=== PATIENT | female | born 1990 | race Caucasian/White ===

== ENCOUNTER 2016-11-30 22:17 | Emergency (ER) | payer MEDICAID ==
[~2016-11-30] VITALS: Ht 152.4 cm; Wt 63.5 kg
[2016-11-30 22:20] VITALS: BP 123/68; PULSE 78; RESP 18; TEMP 98.4; O2SAT 100
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
--- NOTE | 2016-11-30 22:42 | NUR ---
DR. LINARES AT BEDSIDE EXAMINING THE PT.
[2016-11-30] MEDS ORDERED: KETOROLAC TROMETHAMINE 60 MG/2 ML VIAL IM ONE (22:45)
[2016-11-30] MEDS ORDERED: DEXAMETHASONE SOD PHOSPHATE 10 MG/ML VIAL IM ONE (22:45)
[2016-11-30 23:15] VITALS: BP 128/68; PULSE 71; RESP 18; TEMP 98.4; O2SAT 100
--- NOTE | 2016-11-30 23:15 | NUR ---
Patient given written and verbal discharge instructions and verbalizes understanding. ER MD LINARES discussed with patient the results and treatment provided. Patient in stable condition. ID arm band removed. Rx of IBUFROFEN, AMOXICILLIN given. Patient educated on pain management and to follow up with PMD. Pain Scale 0/10 Opportunity for questions provided and answered.
== END 2016-11-30 23:15 | disposition home or self-care (01) ==
LOC: SED 22:17
DX: J03.90 Acute tonsillitis, unspecified (principal); R03.0 Elevated blood-pressure reading, without diagnosis of hypertension; R22.1 Localized swelling, mass and lump, neck
CPT/HCPCS: 96372; 99284; J1100; J1885

== ENCOUNTER 2018-02-07 03:27 | Emergency (ER) | payer MEDICAID ==
[~2018-02-07] VITALS: Ht 154.9 cm; Wt 54.4 kg
[2018-02-07 03:40] VITALS: BP_SYST 148
[2018-02-07] MEDS ORDERED: KETOROLAC TROMETHAMINE 30 MG VIAL IVP ONE (04:00)
[2018-02-07] MEDS ORDERED: NACL 0.9% 1,000 ML IV ONE (04:00)
[2018-02-07] MEDS ORDERED: ONDANSETRON HCL 4 MG/2 ML VIAL IVP ONE (04:00)
[2018-02-07 04:33] LABS: HEMATOCRIT 39.5 % (36-48); HEMOGLOBIN 13.3 g/dL (12.0-16.0); MEAN CORPUSCULAR HEMOGLOBIN 31 pg (27-31); MEAN CORPUSCULAR HGB CONC 34 % (32-36); MEAN CORPUSCULAR VOLUME 91 fL (79.0-98.0); RED BLOOD CELL COUNT(AUTO) 4.34 MIL/uL (4.2-6.2); WHITE BLOOD COUNT (AUTO) 8.6 K/uL (4.8-10.8)
[2018-02-07 04:34] LABS: BASOPHILS % (AUTO) 0.3 % (0.0-2.0); EOSINOPHILS # (AUTO) 0.2 K/uL (0.0-0.4); LYMPHOCYTES % (AUTO) 11.8 % (20.5-51.5); MONOCYTES # (AUTO) 0.6 K/uL (0.0-1.0); NEUTROPHILS # (AUTO) 6.8 K/uL (1.8-7.7); NEUTROPHILS % (AUTO) 78.9 % (40.0-70.0); PLATELET COUNT (AUTO) 200 K/uL (130-430); RED CELL DISTRIBUTION WIDTH 12.2 % (9.0-15.0)
[2018-02-07 04:36] LABS: CALCIUM 9.2 mg/dL (8.4-11.0); CREATININE 0.51 mg/dL (0.55-1.30); POTASSIUM 3.5 mmol/L (3.5-5.1)
[2018-02-07 04:41] LABS: ALBUMIN 3.6 g/dL (3.4-4.8); TOTAL BILIRUBIN 0.7 mg/dL (0.0-1.0)
[2018-02-07 05:20] VITALS: BP_SYST 124
== END 2018-02-07 05:20 | disposition home or self-care (01) ==
LOC: SED 03:27
DX: A08.4 Viral intestinal infection, unspecified (principal); R74.0 Nonspecific elevation of levels of transaminase and lactic acid dehydrogenase [LDH]; R03.0 Elevated blood-pressure reading, without diagnosis of hypertension
CPT/HCPCS: 36415; 80053; 81025; 85025; 96361; 96374; 96375; 99284; J1885; J2405; J7030

== ENCOUNTER 2018-07-20 09:08 | Emergency (ER) | payer MEDICAID ==
[~2018-07-20] VITALS: Ht 154.9 cm; Wt 54.4 kg
[2018-07-20 09:14] VITALS: BP_SYST 139
[2018-07-20 10:02] LABS: BARBITURATE, URINE NEGATIVE (NEG <=200); BENZODIAZEPINE, URINE NEGATIVE (NEG <=150); CANNABINOID, URINE NEGATIVE (NEG <=50); COCAINE, URINE NEGATIVE (NEG <=150); METHAMPHETAMINES SCREEN,URINE NEGATIVE (NEG <=500); OPIATE, URINE NEGATIVE (NEG <=100); PHENCYCLIDINE SCREEN,URINE NEGATIVE (NEG <=25); URINE AMPHETAMINE NEGATIVE (NEG <=500); URINE METHADONE NEGATIVE (NEG <=200); URINE OXYCODONE SCREEN NEGATIVE (NEG <=100); URINE PROPOXYPHENE SCREEN NEGATIVE (NEG <=300)
[2018-07-20 10:03] LABS: UR TRICYCLIC ANTIDEPRESSANTS NEGATIVE (NEG <=300)
== END 2018-07-20 09:32 | disposition left against medical advice (07) ==
LOC: SED 09:08
DX: S01.01XA Laceration without foreign body of scalp, initial encounter (principal); V89.2XXA Person injured in unspecified motor-vehicle accident, traffic, initial encounter; Y93.I9 Activity, other involving external motion; Y92.410 Unspecified street and highway as the place of occurrence of the external cause; Y99.8 Other external cause status
CPT/HCPCS: 80307; 99283

== ENCOUNTER 2019-03-29 23:50 | Emergency (ER) | payer MEDICAID, OTHER ==
[~2019-03-29] VITALS: Ht 162.6 cm; Wt 68.0 kg
[2019-03-29 23:50] VITALS: BP_SYST 132
[2019-03-30 01:14] VITALS: BP_SYST 126
== END 2019-03-30 01:14 ==
LOC: SED 23:50
DX: S00.03XA Contusion of scalp, initial encounter (principal); E11.9 Type 2 diabetes mellitus without complications; R03.0 Elevated blood-pressure reading, without diagnosis of hypertension; V43.52XA Car driver injured in collision with other type car in traffic accident, initial encounter; Y93.89 Activity, other specified; Y92.410 Unspecified street and highway as the place of occurrence of the external cause; Y99.8 Other external cause status
CPT/HCPCS: 99283

== ENCOUNTER 2019-12-26 12:02 | Emergency (ER) | payer MEDICAID, OTHER ==
[~2019-12-26] VITALS: Ht 149.9 cm; Wt 53.5 kg
[2019-12-26 12:05] VITALS: BP_SYST 159
[2019-12-26 12:50] VITALS: BP_SYST 141
== END 2019-12-26 12:50 | disposition home or self-care (01) ==
LOC: SED 12:02
DX: R19.7 Diarrhea, unspecified (principal); L22 Diaper dermatitis; E11.9 Type 2 diabetes mellitus without complications
CPT/HCPCS: 99282